=== PATIENT | male | born 1960 | race Caucasian/White ===

== ENCOUNTER 2017-04-29 11:37 | Day surgery (SDC) | payer OTHER ==
[~2017-04-29] VITALS: Ht 180.3 cm; Wt 74.3 kg
[2017-04-29 12:17] VITALS: Ht 180.3 cm; Wt 74.3 kg
[2017-04-29 12:47] VITALS: BP 160/91; PULSE 64; RESP 17
--- NOTE | 2017-04-29 14:20 | OPPN ---
Date/Time of Note Date/Time of Note DATE: 04/29/17 TIME: 14:18 Operative Report Preoperative Diagnosis Abdominal pain Screening Postoperative Diagnosis Gastritis Small sigmoid colon polyp was removed Internal hemorrhoid Operation/Procedure Performed Esophagogastroduodenoscopy and biopsy Colonoscopy and biopsy Surgeon see signature line content assistant None Anesthesia: moderate sedation Estimated blood loss: none Transfusion Required none Specimen Gastric mucosal biopsy Biopsy of the colon polyp Grafts/Implants none Complications none RAH MOMIN MD Apr 29, 2017 14:20
[2017-04-29] MEDS ORDERED: MIDAZOLAM 1 MG/ML 2 ML INJ ONE ×3 (14:29)
[2017-04-29] MEDS ORDERED: FENTAnyl 50 MCG/ML VIAL ONE (14:30)
[2017-04-29 14:51] VITALS: BP 125/72; PULSE 64; RESP 16
--- NOTE | 2017-04-30 07:23 | GILP ---
DATE OF PROCEDURE: NAME OF PROCEDURES: 1. Esophagogastroduodenoscopy and biopsy. 2. Colonoscopy and biopsy. SURGEON: Rah Antonio MD PREOPERATIVE DIAGNOSES: 1. Abdominal pain. 2. Screening colonoscopy. POSTOPERATIVE DIAGNOSES: 1. Gastritis with erosions. 2. Gastric mucosal biopsies were taken for Helicobacter pylori test. 3. Colonoscopy all the way to the cecum. 4. Small sigmoid colon polyp was removed using the biopsy forceps. 5. Mild diverticulosis of the colon. 6. Internal hemorrhoids. INDICATION FOR THE PROCEDURES: Mr. Dennis Sandoval is a 57-year-old male patient who had upper a bdominal pain, not responding to therapy. He also needed screening colonoscopy. The procedures and possible complications were well explained to the patient. The patient understoo d and consented to the procedures. DESCRIPTION OF PROCEDURE: Under the influence of fentanyl and Versed, the gastroscope was carefully introduced into the esophagus and under direct vision, it was advanced to the stomach and through t he pylorus into the duodenal bulb and descending duodenum. FINDINGS: ESOPHAGUS: The mucosa was normal. STOMACH: Patient had gastritis with erosions. Gastric mucosal biopsies were taken for H. pylori te st. DUODENUM: Normal. The colonoscope was carefully introduced in the rectum and under direct vision, it was advanced all the way to the cecum. FINDINGS: The patient had a small sigmoid colon polyp and it was removed using the biopsy forceps. He was noted to have mild diverticulosis of the colon and internal hemorrhoids. He tolerated the procedures very well and there was no complication from the procedures. At the end of the procedures, he was awake with stable vital signs and he was discharged home to the care of h is family. IMPRESSION: Please see postoperative diagnosis. PLAN: 1. Omeprazole 40 mg p.o. q.a.m. 2. Await histopathology reports. 3. Next screening colonoscopy in 10 years. Dictated By: RAH PATEL/LEENA Conf#: [id number] DID#: [id number]
== END 2017-04-29 15:20 | disposition home or self-care (01) ==
LOC: GIL 11:37
PROVIDERS: ATTEND Internal Medicine Gastroenterology
DX: Z12.11 Encounter for screening for malignant neoplasm of colon (principal); D12.5 Benign neoplasm of sigmoid colon; K29.60 Other gastritis without bleeding; K57.90 Diverticulosis of intestine, part unspecified, without perforation or abscess without bleeding; K64.8 Other hemorrhoids
CPT/HCPCS: 43239; 45380; J2250; J3010; Z7610; 87081; 88305